=== PATIENT | female | born 1980 | race Caucasian/White ===

== ENCOUNTER 2024-03-30 05:26 | Day surgery (SDC) | payer OTHER ==
[2024-03-26 09:49] VITALS: BP 112/73
[~2024-03-30 05:26] MED LIST: BIOTIN1000 MCG PO; MAGNESIUM500 MG PO; POTASSIUM CHLO20 ME1 PO
[2024-03-30] MEDS ORDERED: CEFAZOLIN SODIUM 1,000 MG VIAL ONE (10:24)
[2024-03-30] MEDS ORDERED: ONDANSETRON HCL 2 MG/ML VIAL IV ONE (13:30)
== END 2024-03-30 15:40 | disposition home or self-care (01) ==
LOC: CIR.AMB 05:26
PROVIDERS: ATTEND Obstetrics & Gynecology
DX: D39.8 Neoplasm of uncertain behavior of other specified female genital organs (principal); N90.69 Other specified hypertrophy of vulva; N94.19 Other specified dyspareunia

== ENCOUNTER 2024-03-30 06:38 | Outpatient (CLI) | payer OTHER ==
[2024-03-30 07:39] LABS: INR 1.07; PROTHROMBIN TIME 11.6 SECONDS (9.0-11.5)
== END 2024-03-30 07:14 | disposition home or self-care (01) ==
LOC: LAB 06:38
PROVIDERS: ATTEND Obstetrics & Gynecology
DX: I10 Essential (primary) hypertension (principal)